=== PATIENT | female | born 1965 | race Caucasian/White ===

== ENCOUNTER 2021-03-02 13:26 | Observation (INO) | payer OTHER ==
--- OUTSIDE RECORDS SUMMARY | 2021-03-02 13:31 | XMS REPORT | Continuity of Care Document ---
:1965 Author Organization [facility] t Address [address] [place] [address] Care Team Providers Name Role Phone Tim OLIVEIRA Attending Clinician Only, Test Attending Clinician Unavailable Problems This patient has no known problems. Allergies, Adverse Reactions, Alerts This patient has no known allergies or adverse reactions. Medications This patient has no known medications. Procedures This patient has no known procedures. Encounters Start End Encounter Admission Attending Care Care Encounter Source Date/Time Date/Time Type Type Clinicians Facility Department ID 2021-01-06 2021-01-06 Orders GUILLERMINA Dumont [id number] 00:00:00 00:00:00 Only [facility]ly [facility] [id number] [facility] [id number] 2021-01-02 2021-01-02 Laboratory Only, [facility] [id number] 14:28:08 14:43:08 Only Test Yoder [id number] [facility] [id number] [place] [id number] Results Test Description Test Time Test Comments Results Result Comments Source Prothrombin Time and INR 2019-07-07 09:17:26 Test Item Value Reference Range Interpretation Comme nts Prothrombin Time (test code = Prothrombin Time) 11.7 seconds 9.8-13 .4 INR (test code = INR) 1.0 ratio 0.6-1.2 Partial Thromboplastin [id number] 09:17:26 Test Item Value Reference Range Interpretation Comments Partial Thromboplastin Time 40.50 seconds 24.39-37.25 H (test code = Partial Thromboplastin Time) Thyroid Stimulating [id number] 22:54:55 Test Item Value Reference Range Interpretation Comments TSH (test code = TSH) 3.160 mIU/mL 0.270-4.200 Comprehensive Metabolic [id number] 22:24:11 Test Item Value Reference Range Interpretation Comments Sodium Level (test code = Sodium 138.0 mmol/L 135.0-145.0 Level) Potassium Level (test code = 3.8 mmol/L 3.5-5.1 Potassium Level) Chloride Level (test code = 98 mmol/L 98-105 Chloride Level) CO2 (test code = CO2) 28 mmol/L 22-29 Anion Gap (test code = Anion 12 mmol/L 7-16 Gap) BUN (test code = BUN) 9.60 mg/dL 6.00-20.00 Creatinine Level (test code = 0.80 mg/dL 0.50-0.90 Creatinine Level) BUN/Creat Ratio (test code = 12 N BUN/Creat Ratio) Glucose Level (test code = 77 mg/dL 70-115 Glucose Level) Calcium Level (test code = 9.4 mg/dL 8.3-10.5 Calcium Level) Alk Phos (test code = Alk Phos) 93 U/L 35-104 Bilirubin Total (test code = 0.3 mg/dL 0.1-0.9 Bilirubin Total) Albumin Level (test code = 4.5 g/dL 3.5-5.2 Albumin Level) Protein Total (test code = 7.6 g/dL 6.4-8.3 Protein Total) ALT (test code = ALT) 31 U/L 1-33 AST (test code = AST) 37 U/L 1-32 H Globulin (test code = Globulin) 3.1 g/dL 2.9-3.1 A/G Ratio (test code = A/G 1.5 ratio N Ratio) Lipid [id number] 22:24:11 Test Item Value Reference Range Interpretation Comments Cholesterol Total 108 mg/dL 0-200 RISK OF HE ART (test code = DISEASEPublishe d by Cholesterol Total) [place] [employer] Perla lyte Optimal Borderl ine Increased RiskC HOL <200 200-239 >2 40TRIG <150 150-199 >2 00HDL Male >60 <40H DL Female >60 <5 0LDL <100 130-159 >1 60LDL Near optimal is 100-129 Triglycerides (test 107 mg/dL 9-200 code = Triglycerides) HDL (test code = HDL) 28 mg/dL 50-60 L LDL (test code = LDL) 59 mg/dL 0-130 The eq uation being used in this calcula tion is LDL = (Chol - H DL) - (Trig / 5) VLDL (test code = 21 mg/dL 5-40 The equati on being used VLDL) in this calcula tion is VLDL = Trig / 5 Chol/HDL (test code = 3.9 ratio 0.0-4.4 Chol/HDL) LDL/HDL Ratio (test 2 N The equa tion being used code = LDL/HDL Ratio) in thi s calculation is LDL/HDL Ratio=L DL Calc/HDL Chol Comprehensive Metabolic [id number] 22:24:11 Test Item Value Reference Range Interpretation Comments Sodium Level (test 138.0 mmol/L 135.0-145.0 code = Sodium Level) Potassium Level 3.8 mmol/L 3.5-5.1 (test code = Potassium Level) Chloride Level (test 98 mmol/L 98-105 code = Chloride Level) CO2 (test code = 28 mmol/L 22-29 CO2) Anion Gap (test code 12 mmol/L 7-16 = Anion Gap) BUN (test code = 9.60 mg/dL 6.00-20.00 BUN) Creatinine Level 0.80 mg/dL 0.50-0.90 (test code = Creatinine Level) BUN/Creat Ratio 12 N (test code = BUN/Creat Ratio) Glucose Level (test 77 mg/dL 70-115 code = Glucose Level) Calcium Level (test 9.4 mg/dL 8.3-10.5 code = Calcium Level) Alk Phos (test code 93 U/L 35-104 = Alk Phos) Bilirubin Total 0.3 mg/dL 0.1-0.9 (test code = Bilirubin Total) Albumin Level (test 4.5 g/dL 3.5-5.2 code = Albumin Level) Protein Total (test 7.6 g/dL 6.4-8.3 code = Protein Total) ALT (test code = 31 U/L 1-33 ALT) AST (test code = 37 U/L 1-32 H AST) Globulin (test code 3.1 g/dL 2.9-3.1 = Globulin) A/G Ratio (test code 1.5 ratio N = A/G Ratio) eGFR AA (test code = >60 N eGFR (e stimated eGFR AA) mL/min/1.73 m2 Glomerular Filtration Rate ) is an estimated va lue, calculated from the patient's serum creatinine usin g the MDRD equation. It is NOT the patient 's actual GFR. The eGFR provides a more clinically usef ul measure of kidn ey disease than se rum creatinine alone.This calculation ariela es sex and race in to account, if the information is provided. If th e race is not provided, and t he patient is -Yudith n, multiply by 1.2 12. If sex is not provided, and t he patient is fema le, multiply by 0.7 42. Results for pat ients <18 years of ag e have not been validated by th e MDRD study and should be interpreted wit h caution. eGFR R esult Interpretation: eGFR > or = 60 is in the Normal RangeeGF R < 60 may mean kid shaheed diseaseeGFR < 1 5 may mean kidney failure Rang es recommended by the National Kidney Foundation, http://nkdep.ni h.gov Comprehensive Metabolic [id number] 22:24:11 Test Item Value Reference Range Interpretation Comments Sodium Level (test 138.0 mmol/L 135.0-145.0 code = Sodium Level) Potassium Level 3.8 mmol/L 3.5-5.1 (test code = Potassium Level) Chloride Level (test 98 mmol/L 98-105 code = Chloride Level) CO2 (test code = 28 mmol/L 22-29 CO2) Anion Gap (test code 12 mmol/L 7-16 = Anion Gap) BUN (test code = 9.60 mg/dL 6.00-20.00 BUN) Creatinine Level 0.80 mg/dL 0.50-0.90 (test code = Creatinine Level) BUN/Creat Ratio 12 N (test code = BUN/Creat Ratio) Glucose Level (test 77 mg/dL 70-115 code = Glucose Level) Calcium Level (test 9.4 mg/dL 8.3-10.5 code = Calcium Level) Alk Phos (test code 93 U/L 35-104 = Alk Phos) Bilirubin Total 0.3 mg/dL 0.1-0.9 (test code = Bilirubin Total) Albumin Level (test 4.5 g/dL 3.5-5.2 code = Albumin Level) Protein Total (test 7.6 g/dL 6.4-8.3 code = Protein Total) ALT (test code = 31 U/L 1-33 ALT) AST (test code = 37 U/L 1-32 H AST) Globulin (test code 3.1 g/dL 2.9-3.1 = Globulin) A/G Ratio (test code 1.5 ratio N = A/G Ratio) eGFR AA (test code = >60 N eGFR (e stimated eGFR AA) mL/min/1.73 m2 Glomerular Filtration Rate ) is an estimated va lue, calculated from the patient's serum creatinine usin g the MDRD equation. It is NOT the patient 's actual GFR. The eGFR provides a more clinically usef ul measure of kidn ey disease than se rum creatinine alone.This calculation ariela es sex and race in to account, if the information is provided. If th e race is not provided, and t he patient is -Yudith n, multiply by 1.2 12. If sex is not provided, and t he patient is fema le, multiply by 0.7 42. Results for pat ients <18 years of ag e have not been validated by e MDRD study and should be interpreted wit h caution. eGFR R esult Interpretation: eGFR > or = 60 is in the Normal RangeeGF R < 60 may mean kid shaheed diseaseeGFR < 1 5 may mean kidney failure Rang es recommended by the National Kidney Foundation, http://nkdep.ni h.gov eGFR Non-AA (test >60.00 N eGFR (ayanna mated code = eGFR Non-AA) mL/min/1.73 m2 Glomer ular Filtration Rate ) is an estimated va lue, calculated from the patient's serum creatinine usin g the MDRD equation. It is NOT the patient 's actual GFR. The eGFR provides a more clinically usef ul measure of kidn ey disease than se rum creatinine alone.This calculation ariela es sex and race in to account, if the information is provided. If th e race is not provided, and t he patient is -Yudith n, multiply by 1.2 12. If sex is not provided, and t he patient is femkaylene le, multiply by 0.7 42. Results for pat ients <18 years of ag e have not been validated by e MDRD study and should be interpreted wit h caution. eGFR R esult Interpretation: eGFR > or = 60 is in the Normal RangeeGF R < 60 may mean kid shaheed diseaseeGFR < 1 5 may mean kidney failure Rang es recommended by the National Kidney Foundation, http://nkdep.ni h.gov Complete Blood Count with [id number] 22:15:02 Test Item Value Reference Range Interpretation Comments WBC (test code = WBC) 8.3 x10 4.4-10.5 RBC (test code = RBC) 4.98 x10 3.75-5.20 Hgb (test code = Hgb) 16.1 g/dL 12.2-14.8 H MCV (test code = MCV) 96.80 fL 80.00-100.00 Hct (test code = Hct) 48.2 % 36.5-44.4 H MCHC (test code = 33.40 g/dL 32.00-37.50 MCHC) MCH (test code = MCH) 32.3 pg 27.0-32.5 RDW CV (test code = 13.6 % 11.5-14.5 RDW CV) Platelets (test code = 154.0 x10 140.0-440.0 Platelets) MPV (test code = MPV) 12.3 fL N Slide Review (test Auto Auto Result cr eated by code = Slide Review) GL_SJM_ SLIDE_REV_AUTO nRBC (test code = 0 N nRBC) NRBC Abs (test code = 0.00 x10 N NRBC Abs) IPF (test code = IPF) 0 % N Automated [id number] 22:15:02 Test Item Value Reference Range Interpretation Comments Neutro Auto (test code = Neutro 66.2 % 36.0-70.0 Auto) Lymph Auto (test code = Lymph Auto) 24.0 % 12.0-44.0 [place]oda Auto (test code = [place]oda Auto) 7.2 % 0.0-11.0 Eos, Auto (test code = Eos, Auto) 1.8 % 0.0-7.0 Basophil Auto (test code = Basophil 0.4 % 0.0-2.0 Auto) Neutro Absolute (test code = Neutro 5.5 x10 1.6-7.4 Absolute) Lymph Absolute (test code = Lymph 1.99 x10 .50-4.60 Absolute) [place] Absolute (test code = [place] .60 x10 .00-1.20 Absolute) Eos Absolute (test code = Eos 0.15 x10 0.00-0.74 Absolute) Baso Absolute (test code = Baso 0.03 x10 0.00-0.21 Absolute) IG [id number] 22:15:02 Test Item Value Reference Range Interpretation Comments IG (test code = IG) 0.4 % 0.0-5.0 IG Abs (test code = IG Abs) 0 x10 N
[2021-03-02 16:05] LABS: Absolute Lymphocytes (CBC) 1.8 K/uL (0.7-4.9); Hematocrit 50.2 % (36.0-45.0); Lymphocytes % 31.9 % (15.3-44.8); RBC Red Blood Cell Count 5.28 M/uL (3.86-4.86)
[2021-03-02 16:12] LABS: Protime INR 1.08
[2021-03-02] MEDS ORDERED: MORPHINE 2 MG/ML SYR ONE ×2 (16:18→17:07)
[2021-03-02] MEDS ORDERED: METHYLPREDNISOLONE 125 MG INJ ONE (16:18)
[2021-03-02] MEDS ORDERED: ONDANSETRON 4 MG/2 ML VIAL ONE ×2 (16:18→17:31)
[2021-03-02] MEDS ORDERED: NA CHLORIDE 0.9% 250 ML ONE (16:19)
[2021-03-02] MEDS ORDERED: IPRATROPIUM BROM 0.5MG/2.5ML ONE (16:19)
[2021-03-02] MEDS ORDERED: FAMOTIDINE 20 MG/2 ML VIAL IV ONE (16:19)
[2021-03-02] MEDS ORDERED: AZITHROMYCIN 500 MG INJ IVPB ONE (16:19)
[2021-03-02] MEDS ORDERED: NA CHLORIDE 0.9% 500 ML ONE (16:19)
[2021-03-02] MEDS ORDERED: LEVALBUTEROL 1.25 MG/3 ML NEB ONE ×2 (16:19→19:50)
[2021-03-02] MEDS ORDERED: NA CHLORIDE 0.9% 1,000 ML ONE (16:19)
[2021-03-02] MEDS ORDERED: CEFTRIAXONE/SWI 1gm 1 GM/10 ML SYR ONE (16:20)
[2021-03-02 16:37] LABS: ALT/SGPT 30 U/L (12-78); AST/SGOT 25 U/L (15-37); Albumin 3.5 g/dL (3.4-5.0); Alkaline Phosphatase 113 U/L (45-117); BUN Blood Urea Nitrogen 4 mg/dL (7-18); Bicarbonate 30 mmol/L (21-32); Bilirubin Direct 0.1 mg/dL (0-0.2); Bilirubin Total 0.5 mg/dL (0.2-1.0); Glucose Level 84 mg/dL (74-106); Lipase 56 U/L (73-393); Magnesium 2.4 mg/dL (1.8-2.4); NT PRO-BNP 107 pg/mL (<125); Potassium 3.7 mmol/L (3.5-5.1); Protein, Total 8.5 g/dL (6.4-8.2); Sodium Level 142 mmol/L (136-145); Troponin (Emerg Dept Use Only) < 0.02 ng/mL (0.0-0.045)
--- NOTE | 2021-03-02 16:45 | RAD REPORT ---
EXAM DESCRIPTION: RAD - Chest Single View - 03/02/2021 4:17 pm CLINICAL HISTORY: COPD COMPARISON: None TECHNIQUE: AP portable chest image was obtained 03/02/2021 4:17 pm . FINDINGS: Lung volumes are normal. Diffusely prominent interstitial pattern seen throughout both bruce g mercer. No focal mass or consolidation. No measurable pleural effusion and no pneumothorax. No acut e bony abnormality seen. No acute aortic findings suspected. IMPRESSION: Extensive interstitial opacification is probably chronic COPD. No comparison is available. Chronic interstitial lung disease can mask early edema and infiltrate.
[2021-03-02] MEDS ORDERED: NICOTINE 21 MG/PAT TD ONE (17:07)
[2021-03-02 17:10] LABS: SARS-COV-2 RT PCR NEGATIVE (NEGATIVE)
--- NOTE | 2021-03-02 17:18 | ER ---
Nurse's Notes [facility] Name: Zaina Norman Age: 55 yrs Sex: Female : 1965 Arrival Date: 03/02/2021 Time: 13:28 Bed 23 Private MD: Diagnosis: Chronic obstructive pulmonary disease with (acute) exacerbation;Chest pain, unspecified;Chest pain on breathing;Tobacco abuse counseling;Tobacco use;Respiratory failure, unspecified with hypercapnia;Respiratory failure, unspecified with hypoxia;Urinary tract infection, site not specified Presentation: 03/02 13:42 Chief complaint: Patient states: SOB, lungs hurt, cough worse than usual for 9 days. ll1 [place] ran out of O2, had low O2 sat. when she was out of town. Been back for about 10 days, but still feels bad. Wears oxygen as needed at home. Epigastric pain for several years. Needs a scope, can't be cleared for endo. Coronavirus screen: Client denies travel out of the [place] in the last 14 days. cough unrelated to allergies, difficulty breathing, shortness of breath, Client presents with at least one sign or symptom that may indicate coronavirus-19. Standard/surgical mask placed on the client. Ebola Screen: Patient denies travel to an Ebola-affected area in the 21 days before illness onset. Initial Sepsis Screen: Does the patient meet any 2 criteria? HR > 90 bpm. No. Patient's initial sepsis screen is negative. Does the patient have a suspected source of infection? Yes: Productive cough/pneumonia. Risk Assessment: Do you want to hurt yourself or someone else? Patient reports no desire to harm self or others. Onset of symptoms was February 21, 2021. 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 Flu vaccine is not up to date. - Social history:: Smoking status: Patient reports the use of cigarette tobacco products, smokes one-half pack cigarettes per day. Screenin:30 Abuse screen: Denies threats or abuse. Denies injuries from another. Nutritional zb screening: No deficits noted. Tuberculosis screening: No symptoms or risk factors identified. Fall Risk None identified. Assessment: 15:30 General: Appears uncomfortable, Behavior is anxious, Reports feeling ill for > 3 days, zb fatigue for >3 days. Pain: Complains of pain in back, chest and abdomen Pain currently is 10 out of 10 on a pain scale. Quality of pain is described as crushing, pressure, Pain began 9 days ago Noted to be crying, grimacing, moaning. Neuro: Level of Consciousness is awake, alert, obeys commands, Oriented to person, place, time, situation. Cardiovascular: Reports chest pain, shortness of breath, Heart tones S1 S2 present Capillary refill < 3 seconds fingers Patient's skin is warm and dry. Pulses are all present. Rhythm is regular. Respiratory: Reports shortness of breath at rest cough that is hacking, persistent pain with cough pain with movement pain with respiration Airway is patent Respiratory effort is shallow, weak, using tripod position, Respiratory pattern is tachypnea Breath sounds are diminished in left posterior lower lobe and right posterior lower lobe Breath sounds with rhonchi in left posterior lower lobe and right posterior lower lobe the patient has moderate shortness of breath. GI: Abdomen is round Bowel sounds present X 4 quads. Abdomen is tender to palpation in abdomen diffusely Patient currently denies constipation, diarrhea, nausea. Derm: Skin is intact, is healthy with good turgor, Skin is dry, Skin is pale. Musculoskeletal: Circulation, motion, and sensation intact. Range of motion: intact in all extremities. 16:30 Reassessment: Patient appears in no apparent distress at this time. Patient and/or zb family updated on plan of care and expected duration. Pain level reassessed. patient c/o of needing cigarette notified ecp. medication ordered. 16:50 Reassessment: Patient appears in no apparent distress at this time. Patient and/or zb family updated on plan of care and expected duration. Pain level reassessed. Patient is alert, oriented x 3, equal unlabored respirations, skin warm/dry/pink. ECP at bedside discussing care with patient. 17:50 Reassessment: Patient appears in no apparent distress at this time. Patient and/or zb family updated on plan of care and expected duration. Pain level reassessed. pt states she is still in pain. notified ecp. no new orders at this time. 18:13 Reassessment: patient states she is still in pain at this time. notified ecp. zb 19:39 Reassessment: Patient appears in no apparent distress at this time. Patient and/or zb family updated on plan of care and expected duration. Pain level reassessed. Patient is alert, oriented x 3, equal unlabored respirations, skin warm/dry/pink. Patient states feeling better. Patient states symptoms have improved. 20:06 Reassessment: patient is currently on BIPAP. 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 zb Vital Signs: 13:42 BP 121 / 95; Pulse 98; Resp 20; Temp 97.4; Pulse Ox 95% on 3 lpm NC; Height 5 ft. 1 in. ll1 (154.94 cm); Pain 9/10; 15:30 BP 119 / 84; Pulse 101; Resp 22; Pulse Ox 92% on 2 lpm NC; zb 17:00 BP 131 / 98; Pulse 92; Resp 20; Pulse Ox 99% on 2 lpm NC; zb 18:00 Weight 62.4 kg; Height 4 ft. 11 in. (149.86 cm); zb 18:12 BP 132 / 108; Pulse 105; Resp 18; Pulse Ox 95% on 2 lpm NC; zb 19:27 BP 109 / 79; Pulse 90; Resp 18; Pulse Ox 95% on 2 lpm NC; zb 20:46 BP 115 / 79; Pulse 81; Resp 18; Pulse Ox 94% on BiPAP; zb 18:00 Body Mass Index 27.79 (62.40 kg, 149.86 cm) zb ED Course: 13:28 Patient arrived in ED. am4 13:46 Triage completed. ll1 13:48 Arm band placed on. ll1 15:21 Patient placed in an exam room, on a stretcher. ll1 15:25 Radha Moreira RN is Primary Nurse. zb 15:30 Sean Schwarz MD is Attending Physician. mak 15:30 Patient has correct armband on for positive identification. Bed in low position. Call zb light in reach. Side rails up X 1. 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 Pulse ox on. NIBP on. Door closed. Noise minimized. 15:40 Inserted saline lock: 20 gauge in right antecubital area, using aseptic technique. zb Blood collected. Oxygen administration via nasal cannula \T\ 2L/min Response to oxygen therapy: symptoms improved. 15:41 EKG done, by ED staff, reviewed by Sean Schwarz MD. mb4 16:00 Initial Neb Treatment Given as ordered Patient was instructed and evaluated on zb procedure Patient tolerated procedure well without adverse effect. 16:17 XRAY Chest (1 view) In Process Unspecified. EDMS 17:15 Isreal Paredes DO is Hospitalizing Provider. [facility] 17:28 CT Aorta for Dissection In Process Unspecified. EDMS 20:52 No provider procedures requiring assistance completed. Patient admitted, IV remains in zb place. Administered Medications: 16:07 Drug: SOLU-Medrol (methylPrednisoLONE) 125 mg Route: IVP; Site: right antecubital; zb 16:57 Follow up: Response: No adverse reaction zb 16:07 Drug: morphine 2 mg {Note: RASS +1.} Route: IVP; Site: right antecubital; zb 16:08 Drug: NS 0.9% 500 ml Route: IV; Rate: bolus; Site: right antecubital; zb 16:58 Follow up: Response: No adverse reaction; IV Status: Completed infusion; IV Intake: zb 500ml 16:08 Drug: Pepcid (famotidine) 20 mg Route: IVP; Site: right antecubital; zb 16:58 Follow up: Response: No adverse reaction zb 16:08 Drug: Zofran (Ondansetron) 4 mg Route: IVP; Site: right antecubital; zb 16:57 Follow up: Response: No adverse reaction zb 16:20 Drug: NS 0.9% 1000 ml Route: IV; Rate: 125 ml/hr; Site: right antecubital; zb 16:28 Drug: Rocephin (cefTRIAXone) 1 grams Route: IV; Rate: per protocol; Site: right zb antecubital; 16:30 Follow up: Response: No adverse reaction; IV Status: Completed infusion; IV Intake: 10mlzb 16:28 Drug: Zithromax (azithromycin) 500 mg Route: IVPB; Infused Over: 1 hrs; Site: right zb antecubital; 16:28 Drug: Xopenex (levalbuterol) 3.75 mg Route: Inhalation; zb 16:28 Drug: AtroVENT (ipratropium) Aerosol 0.5 mg Route: Inhalation; zb 16:56 Drug: morphine 2 mg {Note: RASS +1.} Route: IVP; Site: right antecubital; zb 17:30 Follow up: Response: No adverse reaction; Pain is unchanged, physician notified zb 16:59 Drug: Nicoderm CQ 21 mg/24 hr 21 mg Route: Transdermal; Site: affected area; zb 18:11 Follow up: Response: No adverse reaction zb 17:00 Drug: morphine 4 mg Route: IVP; Site: right antecubital; zb 18:11 Follow up: Response: No adverse reaction; No change in condition; Pain is unchanged, zb physician notified 17:00 Drug: Zofran (Ondansetron) 4 mg Route: IVP; Site: right antecubital; zb 18:11 Follow up: Response: No adverse reaction zb 18:10 Drug: Lovenox (enoxaparin) 1 mg/kg Route: Sub-Q; Site: right lower abdomen; zb 18:26 Follow up: Response: No adverse reaction zb 18:10 Drug: Aspirin Chewable Tablet 324 mg Route: PO; zb 18:26 Follow up: Response: No adverse reaction zb 18:50 Drug: HYDROcodone-acetaminophen 5 mg-325 mg 1 tabs {Note: RASS 0.} Route: PO; zb 19:27 Follow up: Response: No adverse reaction; Pain is decreased; RASS: Alert and Calm (0) zb 19:38 Drug: Xopenex (levalbuterol) 2.5 mg Route: Inhalation; zb 20:00 Follow up: Response: No adverse reaction; Marked relief of symptoms zb 19:39 Drug: Decadron - Dexamethasone 10 mg Route: IVP; Site: right antecubital; zb 20:00 Follow up: Response: No adverse reaction zb Intake: 16:30 IV: 10ml; Total: 10ml. zb 16:58 IV: 500ml; Total: 510ml. zb Outcome: 17:17 Decision to Hospitalize by Provider. mak 20:52 Admitted to Med/surg accompanied by tech, via stretcher, room 225, with oxygen, with zb chart, Report called to MARCELINO García 20:52 Condition: stable 21:53 Patient left the ED. zb Signatures: Dispatcher [employer] EDMS Sean Schwarz MD MD cha Baxter, Mackenzie mb4 Alecia Crawford RN RN ll1 Radha Moreira RN RN bladimirb Kym Wilson 4 Corrections: (The following items were deleted from the chart) 14:04 13:42 BP 121 / 95; Pulse 98bpm; Resp 20bpm; Pulse Ox 94% 3 lpm Nasal Cannula; Temp ll1 97.4F; Height 5 ft. 1 in.; Pain 9/10; ll1 17:38 17:38 Zofran (Ondansetron) 4 mg IVP in right antecubital zb zb 18:14 17:50 Reassessment: Patient appears in no apparent distress at this time. Patient zb and/or family updated on plan of care and expected duration. Pain level reassessed. pt states she is still in pain. notified ecp. zb
--- NOTE | 2021-03-02 17:19 | EDPHYS ---
Physician Documentation [facility] Name: Zaina Norman Age: 55 yrs Sex: Female : 1965 Arrival Date: 03/02/2021 Time: 13:28 Bed 23 Private MD: GABBY Physician Sean Schwarz HPI: 03/02 17:02 This 55 yrs old Female presents to ER via Wheelchair with complaints of mak Abdominal Pain, Shortness Of Breath, Decreased Appetite. 17:02 The patient has shortness of breath at rest, with light activity. Onset: The mak symptoms/episode began/occurred 3 day(s) ago. Duration: The symptoms are continuous, and are steadily getting worse. The patient's shortness of breath is aggravated by exertion, light activity. Associated signs and symptoms: The patient has no apparent associated signs or symptoms. Severity of symptoms: At their worst the symptoms were mild moderate in the emergency department the symptoms are unchanged Pain is currently a 5 / 10. The patient has experienced similar episodes in the past, a few times. 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 Flu vaccine is not up to date. - Social history:: Smoking status: Patient reports the use of cigarette tobacco products, smokes one-half pack cigarettes per day. ROS: 17:04 Constitutional: Negative for fever, chills, and weight loss, Eyes: Negative for injury, mak pain, redness, and discharge, ENT: Negative for injury, pain, and discharge, Neck: Negative for injury, pain, and swelling, Cardiovascular: Negative for chest pain, palpitations, and edema, Abdomen/GI: Negative for abdominal pain, nausea, vomiting, diarrhea, and constipation, Back: Negative for injury and pain, : Negative for injury, bleeding, discharge, and swelling, MS/Extremity: Negative for injury and deformity, Skin: Negative for injury, rash, and discoloration, Neuro: Negative for headache, weakness, numbness, tingling, and seizure, Psych: Negative for depression, anxiety, suicide ideation, homicidal ideation, and hallucinations, Allergy/Immunology: Negative for hives, rash, and allergies, Endocrine: Negative for neck swelling, polydipsia, polyuria, polyphagia, and marked weight changes, Hematologic/Lymphatic: Negative for swollen nodes, abnormal bleeding, and unusual bruising. 17:04 Respiratory: Positive for cough, shortness of breath, wheezing, expiratory. Exam: 17:04 Constitutional: This is a well developed, well nourished patient who is awake, alert, mak and in no acute distress. Head/Face: Normocephalic, atraumatic. Eyes: Pupils equal round and reactive to light, extra-ocular motions intact. Lids and lashes normal. Conjunctiva and sclera are non-icteric and not injected. Cornea within normal limits. Periorbital areas with no swelling, redness, or edema. ENT: Nares patent. No nasal discharge, no septal abnormalities noted. Tympanic membranes are normal and external auditory canals are clear. Oropharynx with no redness, swelling, or masses, exudates, or evidence of obstruction, uvula midline. Mucous membranes moist. Neck: Trachea midline, no thyromegaly or masses palpated, and no cervical lymphadenopathy. Supple, full range of motion without nuchal rigidity, or vertebral point tenderness. No Meningismus. Chest/axilla: Normal chest wall appearance and motion. Nontender with no deformity. No lesions are appreciated. Cardiovascular: Regular rate and rhythm with a normal S1 and S2. No gallops, murmurs, or rubs. Normal PMI, no JVD. No pulse deficits. Abdomen/GI: Soft, non-tender, with normal bowel sounds. No distension or tympany. No guarding or rebound. No evidence of tenderness throughout. Back: No spinal tenderness. No costovertebral tenderness. Full range of motion. Skin: Warm, dry with normal turgor. Normal color with no rashes, no lesions, and no evidence of cellulitis. MS/ Extremity: Pulses equal, no cyanosis. Neurovascular intact. Full, normal range of motion. Neuro: Awake and alert, GCS 15, oriented to person, place, time, and situation. Cranial nerves II-XII grossly intact. Motor strength 5/5 in all extremities. Sensory grossly intact. Cerebellar exam normal. Normal gait. Psych: Awake, alert, with orientation to person, place and time. Behavior, mood, and affect are within normal limits. 17:04 Respiratory: the patient does not display signs of respiratory distress, Respirations: normal, no acute changes, Breath sounds: rales, are not appreciated, decreased breath sounds, that are mild, are heard in the right upper lobe, left upper lobe, right middle lobe, left lower lobe, right lower lobe, left posterior upper lobe, right posterior upper lobe, left posterior lower lobe, right posterior middle lobe and right posterior lower lobe, rhonchi, stridor, is not appreciated, + upper airway congestion. wheezing: expiratory 17:06 ECG was reviewed by the Attending Physician. mak 17:13 Musculoskeletal/extremity: DVT Exam: No signs of deep vein thrombosis. no pain, no mak swelling, no tenderness, negative Homans' sign noted on exam, no appreciated bluish discoloration, no erythema, no increased warmth. Vital Signs: 13:42 BP 121 / 95; Pulse 98; Resp 20; Temp 97.4; Pulse Ox 95% on 3 lpm NC; Height 5 ft. 1 in. ll1 (154.94 cm); Pain 9/10; 15:30 BP 119 / 84; Pulse 101; Resp 22; Pulse Ox 92% on 2 lpm NC; zb 17:00 BP 131 / 98; Pulse 92; Resp 20; Pulse Ox 99% on 2 lpm NC; zb 18:00 Weight 62.4 kg; Height 4 ft. 11 in. (149.86 cm); zb 18:12 BP 132 / 108; Pulse 105; Resp 18; Pulse Ox 95% on 2 lpm NC; zb 19:27 BP 109 / 79; Pulse 90; Resp 18; Pulse Ox 95% on 2 lpm NC; zb 20:46 BP 115 / 79; Pulse 81; Resp 18; Pulse Ox 94% on BiPAP; zb 18:00 Body Mass Index 27.79 (62.40 kg, 149.86 cm) zb MDM: 15:30 Patient medically screened. mak 17:11 Differential diagnosis: Bronchitis CHF exacerbation, Chronic Obstructive Pulmonary mak Disease Myocardial Infarction pneumonia, Pneumothorax Psychogenic pulmonary edema, Pulmonary Embolism reactive airway disease, Sepsis Unstable Angina. Antibiotic administration: Rocephin and Zithromax given. The patient's Wells Deep Vein Thrombosis Score was calculated as follows: Total Score: 0-2 Pts- Low Risk. The patient's pulmonary embolism risk score was calculated as follows: Total Score: 0-2 points. This patient was found to be at low risk for a pulmonary embolism by using the Well's assessment criteria. Immunization status: Influenza vaccine:. Data reviewed: vital signs, nurses notes, lab test result(s), EKG, radiologic studies, CT scan, plain films. Data interpreted: color television console monitor: rate is 92 beats/min, rhythm is regular, Pulse oximetry: on room air. Test interpretation: by ED physician or midlevel provider: ECG, plain radiologic studies. Counseling: I had a detailed discussion with the patient and/or guardian regarding: the historical points, exam findings, and any diagnostic results supporting the discharge/admit diagnosis, lab results, the need for further work-up and treatment in the hospital. 03/02 15:53 Order name: Basic Metabolic Panel [facility] 03/02 15:53 Order name: CBC with Diff [facility] 03/02 15:53 Order name: LFT's [facility] 03/02 15:53 Order name: Magnesium [facility] 03/02 15:53 Order name: NT PRO-BNP [facility] 03/02 15:53 Order name: PT-INR; Complete Time: 16:41 [facility] 03/02 15:53 Order name: Troponin (emerg Dept Use Only); Complete Time: 17:08 [facility] 03/02 15:53 Order name: Lipase; Complete Time: 17:08 [facility] 03/02 15:53 Order name: Blood Culture Adult (2) [facility] 03/02 15:53 Order name: Flu [facility] 03/02 15:54 Order name: Basic Metabolic Panel; Complete Time: 17:08 [facility] 03/02 15:54 Order name: CBC with Automated Diff; Complete Time: 19:15 [facility] 03/02 15:54 Order name: Liver (Hepatic) Function; Complete Time: 17:08 [facility] 03/02 15:53 Order name: XRAY Chest (1 view); Complete Time: 17:08 [facility] 03/02 15:53 Order name: CT Aorta for Dissection; Complete Time: 18:13 [facility] 03/02 15:54 Order name: Magnesium; Complete Time: 17:08 [facility] 03/02 15:54 Order name: NT PRO-BNP; Complete Time: 17:08 [facility] 03/02 17:10 Order name: COVID-19/FLU A+B; Complete Time: 17:11 [facility] 03/02 18:44 Order name: CBC Smear Scan; Complete Time: 19:15 [facility] 03/02 18:50 Order name: ABG hb 03/02 19:17 Order name: BIPAP mak 03/02 19:22 Order name: Urine Dipstick-Ancillary; Complete Time: 19:23 [facility] 03/02 19:41 Order name: ABG Arterial Blood Gas [facility] 03/02 15:53 Order name: EKG; Complete Time: 15:54 [facility] 03/02 15:53 Order name: Cardiac monitoring; Complete Time: 16:29 [facility] 03/02 15:53 Order name: EKG - Nurse/Tech; Complete Time: 16:08 [facility] 03/02 15:53 Order name: IV Saline Lock; Complete Time: 16:09 [facility] 03/02 15:53 Order name: Labs collected and sent; Complete Time: 16:09 [facility] 03/02 15:53 Order name: O2 Per Protocol; Complete Time: 16:09 [facility] 03/02 15:53 Order name: O2 Sat Monitoring; Complete Time: 16:09 [facility] 03/02 15:53 Order name: Urine Dipstick-Ancillary (obtain specimen); Complete Time: 19:17 mak EC:06 Rate is 89 beats/min. Rhythm is regular. QRS [place]ow[place] is Normal. [place] interval is normal. QRS mak interval is normal. QT interval is normal. No Q waves. T waves are Normal. No ST changes noted. Clinical impression: Normal ECG and No evidence of ischemia. Interpreted by me. Reviewed by me. Administered Medications: 16:07 Drug: SOLU-Medrol (methylPrednisoLONE) 125 mg Route: IVP; Site: right antecubital; zb 16:57 Follow up: Response: No adverse reaction zb 16:07 Drug: morphine 2 mg {Note: RASS +1.} Route: IVP; Site: right antecubital; zb 16:08 Drug: NS 0.9% 500 ml Route: IV; Rate: bolus; Site: right antecubital; zb 16:58 Follow up: Response: No adverse reaction; IV Status: Completed infusion; IV Intake: zb 500ml 16:08 Drug: Pepcid (famotidine) 20 mg Route: IVP; Site: right antecubital; zb 16:58 Follow up: Response: No adverse reaction zb 16:08 Drug: Zofran (Ondansetron) 4 mg Route: IVP; Site: right antecubital; zb 16:57 Follow up: Response: No adverse reaction zb 16:20 Drug: NS 0.9% 1000 ml Route: IV; Rate: 125 ml/hr; Site: right antecubital; zb 16:28 Drug: Rocephin (cefTRIAXone) 1 grams Route: IV; Rate: per protocol; Site: right zb antecubital; 16:30 Follow up: Response: No adverse reaction; IV Status: Completed infusion; IV Intake: 10mlzb 16:28 Drug: Zithromax (azithromycin) 500 mg Route: IVPB; Infused Over: 1 hrs; Site: right zb antecubital; 16:28 Drug: Xopenex (levalbuterol) 3.75 mg Route: Inhalation; zb 16:28 Drug: AtroVENT (ipratropium) Aerosol 0.5 mg Route: Inhalation; zb 16:56 Drug: morphine 2 mg {Note: RASS +1.} Route: IVP; Site: right antecubital; zb 17:30 Follow up: Response: No adverse reaction; Pain is unchanged, physician notified zb 16:59 Drug: Nicoderm CQ 21 mg/24 hr 21 mg Route: Transdermal; Site: affected area; zb 18:11 Follow up: Response: No adverse reaction zb 17:00 Drug: morphine 4 mg Route: IVP; Site: right antecubital; zb 18:11 Follow up: Response: No adverse reaction; No change in condition; Pain is unchanged, zb physician notified 17:00 Drug: Zofran (Ondansetron) 4 mg Route: IVP; Site: right antecubital; zb 18:11 Follow up: Response: No adverse reaction zb 18:10 Drug: Lovenox (enoxaparin) 1 mg/kg Route: Sub-Q; Site: right lower abdomen; zb 18:26 Follow up: Response: No adverse reaction zb 18:10 Drug: Aspirin Chewable Tablet 324 mg Route: PO; zb 18:26 Follow up: Response: No adverse reaction zb 18:50 Drug: HYDROcodone-acetaminophen 5 mg-325 mg 1 tabs {Note: RASS 0.} Route: PO; zb 19:27 Follow up: Response: No adverse reaction; Pain is decreased; RASS: Alert and Calm (0) zb 19:38 Drug: Xopenex (levalbuterol) 2.5 mg Route: Inhalation; zb 20:00 Follow up: Response: No adverse reaction; Marked relief of symptoms zb 19:39 Drug: Decadron - Dexamethasone 10 mg Route: IVP; Site: right antecubital; zb 20:00 Follow up: Response: No adverse reaction zb Disposition: 03/02/21 17:17 Hospitalization ordered by Isreal Paredes for Inpatient Admission. Preliminary diagnosis are Chronic obstructive pulmonary disease with (acute) exacerbation, Chest pain, unspecified, Chest pain on breathing, Tobacco abuse counseling, Tobacco use, Respiratory failure, unspecified with hypercapnia, Respiratory failure, unspecified with hypoxia, Urinary tract infection, site not specified. - Bed requested for Telemetry/MedSurg (Inpatient). - Status is Inpatient Admission. zb - Condition is Fair. - Problem is new. - Symptoms have improved. Signatures: Dispatcher [employer] [facility] Sean Schwarz MD MD cha Attema, Lee, SPANISHER-C SPANISHER-Cla1 Eliz Leonard RN RN cg Alecia Crawford RN RN ll1 Radha Moreira RN RN zb Corrections: (The following items were deleted from the chart) 16:21 15:54 CORONAVIRUS+LAB.CHRISTY ordered. [facility] 19:18 17:17 Hospitalization Ordered by Isreal Paredes DO for Observation. Preliminary mak diagnosis is Chronic obstructive pulmonary disease with (acute) exacerbation; Chest pain, unspecified; Chest pain on breathing; Tobacco abuse counseling; Tobacco use. Bed requested for Telemetry/MedSurg (observation). Status is Observation. Condition is Fair. Problem is new. Symptoms have improved. [facility] 19:24 19:18 03/02/2021 17:17 Hospitalization Ordered by Isreal Paredes DO for Inpatient mak Admission. Preliminary diagnosis is Chronic obstructive pulmonary disease with (acute) exacerbation; Chest pain, unspecified; Chest pain on breathing; Tobacco abuse counseling; Tobacco use; Respiratory failure, unspecified with hypercapnia; Respiratory failure, unspecified with hypoxia. Bed requested for Telemetry/MedSurg (Inpatient). Status is Inpatient Admission. Condition is Fair. Problem is new. Symptoms have improved. mak 20:08 19:24 03/02/2021 17:17 Hospitalization Ordered by Isreal Paredes DO for Inpatient cg Admission. Preliminary diagnosis is Chronic obstructive pulmonary disease with (acute) exacerbation; Chest pain, unspecified; Chest pain on breathing; Tobacco abuse counseling; Tobacco use; Respiratory failure, unspecified with hypercapnia; Respiratory failure, unspecified with hypoxia; Urinary tract infection, site not specified. Bed requested for Telemetry/MedSurg (Inpatient). Status is Inpatient Admission. Condition is Fair. Problem is new. Symptoms have improved. mak 21:53 20:08 03/02/2021 17:17 Hospitalization Ordered by Isreal Paredes DO for Inpatient zb Admission. Preliminary diagnosis is Chronic obstructive pulmonary disease with (acute) exacerbation; Chest pain, unspecified; Chest pain on breathing; Tobacco abuse counseling; Tobacco use; Respiratory failure, unspecified with hypercapnia; Respiratory failure, unspecified with hypoxia; Urinary tract infection, site not specified. Bed requested for Telemetry/MedSurg (Inpatient). Status is Inpatient Admission. Condition is Fair. Problem is new. Symptoms have improved. cg
[2021-03-02] MEDS ORDERED: MORPHINE 4 MG/ML SYR ONE (17:30)
--- NOTE | 2021-03-02 18:01 | RAD REPORT ---
EXAM DESCRIPTION: CT - Angio Aorta For Dissection - 03/02/2021 5:28 pm CLINICAL HISTORY: Dissection;COPD COMPARISON: None. TECHNIQUE: Dynamically enhanced 3 mm thick images of the chest, abdomen, and pelvis were obtained du ring administration of approximately 150mL Isovue 370 IV contrast. Sagittal and coronal reconstructio n images were generated using MIP and reviewed. Exam utilizes a protocol to evaluate entire course of the aorta. All CT scans are performed using dose optimization technique as appropriate and may include automated exposure control or mA/KV adjustment according to patient size. FINDINGS: Aorta is normal in diameter with no dissection or other acute aortic findings. Reconstruct ion images show no significant findings. Aortic wall calcifications are present with minimally irregu lar plaquing in the infrarenal segment. Pulmonary arteries are normal. No cardiomegaly, pericardial thickening or pericardial effusion. Subpleural fibrotic changes are present. No acute mass or infiltrate identifiable. A few small calcif ied granulomas are present. No pleural thickening, pleural effusion or pneumothorax. Ununited posteri or right seventh rib fracture is present. Partial union noted in the posterior left eighth rib. No abnormal mediastinal or hilar mass or lymphadenopathy seen. No chest wall mass or abnormal axillar y lymphadenopathy. Celiac, SMA and renal arteries show no suspicious findings. Paired renal artery supply the right kidn ey was single left renal artery Solid abdominal viscera and bowel show no significant findings. A few mildly prominent fluid-filled small bowel loops are present. Enteritis of the distal small bowel is possible if there are supporting clinical findings. Cholecystectomy clips are present. No biliary michael e dilatation. No mass or abnormal lymphadenopathy. No free air, free fluid or inflammatory stranding. No urinary bladder abnormality. Iliac artery atherosclerotic calcifications are present. There is mild narrowing of the right common iliac artery. Approximately 40% stenosis present at the origin of the left external iliac artery. IMPRESSION: Unremarkable CT scan of the aorta for aneurysm, dissection or emergent finding. Mild aor tic wall calcifications are present with mild infrarenal aortic plaquing change. Milder right common iliac artery narrowing due to atherosclerotic changes. The patient has approximat vaughn 40% stenosis of the left external carotid artery at its origin. A few mildly prominent small bowel loops are present. Enteritis is possible if there are matching cli nical findings. Additional nonacute findings detailed in the body of the report.
[2021-03-02] MEDS ORDERED: ENOXAPARIN 60 MG/0.6 ML SQ ONE (18:22)
[2021-03-02] MEDS ORDERED: ASPIRIN 81 MG CHEWABLE TABLET ONE (18:22)
[2021-03-02 18:43] LABS: Blood Morphology Comment NOT SEEN (NOT SEEN); Platelet Estimate DECR; White Blood Cell Scan OK (OK)
[2021-03-02] MEDS ORDERED: HYDROCODONE/APAP 5/325 MG TAB ONE (18:57)
[2021-03-02 19:22] LABS: Urine Blood Negative (Negative); Urine Glucose Negative (Negative); Urine Protein Negative (Negative); Urine Specific Gravity 1.015 (1.005-1.030)
--- NOTE | 2021-03-02 19:24 | P.HP ---
Certification for Inpatient Patient admitted to: Observation With expected LOS: <2 Midnights Patient will require the following post-hospital care: None Practitioner: I am a practitioner with admitting privileges, knowledge of patient current condition, hospital course, and medical plan of care. Services: Services provided to patient in accordance with Admission requirements found in Title 42 Section 412.3 of the Code of Federal Regulations <Giorgio Dukes - Last Filed: 03/02/21 20:34> Patient History Date of Service: 03/02/21 Primary Care Provider: [facility] Doctor, pulmonology- Dr. Ordoñez Reason for admission: COPD exacerbation History of Present Illness: 55-year-old female history of COPD on chronic home oxygen therapy, CAD presents emergency department for shortness breath, wheezing. Patient evaluated in the emergency department, labs significant for white blood cell count 5.6, h emoglobin 16.79 crit 50 point to chest x-ray demonstrates extensive interstitial opacification likely chronic COPD, CT dissection protocol is that acute findings but does mention mild aortic wall calcifications present with mild infrarenal aortic plaque changing, mild the right common iliac artery narrowing due to atherosclerotic changes. Patient has approximately 40% stenosis of the left external carotid artery at its origin. Patient still wheezing and short of breath after nebulizer treatments, steroids in the emergency department, ED wishes to admit for further evaluation and management of COPD exacerbation. ABG pending. - Past Medical/Surgical History -: COPD on home oxygen -: CAD -: Tubal ligation -: Hysterectomy -: Cholecystectomy -: Carpal tunnel Psychosocial/ Personal History: Patient lives at home with son and - Family History Father -: Heart disease, Cancer Mother -: Diabetes, Cancer Brother -: Diabetes, Stroke, Cancer - Social History Smoking Status: Current every day smoker Counseled patient to stop smoking for: less than 10 minutes Smoking therapy provided: Yes Alcohol use: No CD- Drugs: No Caffeine use: Yes Place of Residence: Home <Giorgio Dukes - Last Filed: 03/02/21 20:34> Date of Service: 03/02/21 <Jett Pollock - Last Filed: 03/03/21 14:25> Review of Systems 10-point ROS is otherwise unremarkable General: Malaise Respiratory: Shortness of Breath Cardiovascular: Chest Pain <Giorgio Dukes - Last Filed: 03/02/21 20:34> Physical Examination - Physical Exam General: Alert, In no apparent distress, Oriented x3 HEENT: Atraumatic, PERRLA, Mucous membr. moist/pink Neck: Supple Respiratory: Normal air movement, Expiratory wheezes Cardiovascular: No edema, Regular rate/rhythm, Normal S1 S2 Capillary refill: <2 Seconds Gastrointestinal: Normal bowel sounds, No tenderness, No rebound, No guarding Musculoskeletal: No tenderness Integumentary: No rashes Neurological: Normal speech, Normal strength at 5/5 x4 extr, Normal tone, Normal affect - Studies Laboratory Data (last 24 hrs) 03/02/21 15:40: PT 12.4, INR 1.08 03/02/21 15:40: WBC 5.60, Hgb 16.7 H, Hct 50.2 H, Plt Count 144 L 03/02/21 15:40: Sodium 142, Potassium 3.7, BUN 4 L, Creatinine 0.60, Glucose 84, Magnesium 2.4, Total Bilirubin 0.5, AST 25, ALT 30, Alkaline Phosphatase 113, Lipase 56 L <Giorgio Dukes - Last Filed: 03/02/21 20:34> - Studies Laboratory Data (last 24 hrs) 03/02/21 15:40: PT 12.4, INR 1.08 03/02/21 15:40: WBC 5.60, Hgb 16.7 H, Hct 50.2 H, Plt Count 144 L 03/02/21 15:40: Sodium 142, Potassium 3.7, BUN 4 L, Creatinine 0.60, Glucose 84, Magnesium 2.4, Total Bilirubin 0.5, AST 25, ALT 30, Alkaline Phosphatase 113, Lipase 56 L <Jett Pollock - Last Filed: 03/03/21 14:25> Assessment and Plan - Plan Assessment Acute on chronic respiratory failure secondary to COPD with exacerbation-on home oxygen Hypertension Anxiety History of CAD Migraines Plan Acute on chronic hypoxic, hypercapnic respiratory failure secondary to COPD with exacerbation-on home oxygen: Continue with IV steroids, scheduled nebs, inhalers. Pulmonology consulted. ABG pending, BiPAP if needed. Anticipate clinical improvement next 24-48 hr. DVT prophylaxis Lovenox 40 mg subcutaneous once daily. Hypertension: Continue home medications Anxiety: Continue home medications History of CAD: Patient reports history of heart catheterization without stent placement, will continue home medications. Patient need to follow up with Cardiology on outpatient basis. Migraines: Continue home medications Discharge Plan: Home Plan to discharge in: 24 Hours - Advance Directives Does patient have a Living Will: No Does patient have a Durable POA for Healthcare: No - Code Status/Comfort Care Code Status Assessed: Yes (Full code) Critical Care: No Time Spent Managing Pts Care (In Minutes): 55 <Giorgio Dukes - Last Filed: 03/02/21 20:34> Date of Service: 03/02/21 Agree with plan of care as mentioned below. Patient is clinically doing well. Patient denies any new complaints. Anticipate discharge later today. <Jett Pollock - Last Filed: 03/03/21 14:25>
[2021-03-02 19:40] LABS: Arterial Blood Carboxyhemoglob 3.2 % (0-1.5); Blood Gas Oxyhemoglobin 85.3 % (94-97); Blood O2 Saturation 88.9 % (92-98.5)
[2021-03-02] MEDS ORDERED: dexAMETHasone 10 MG/ML VIAL ONE (19:50)
[2021-03-02] MEDS ORDERED: ACETAMINOPHEN 500 MG TAB PO PRN (21:42)
[2021-03-02] MEDS ORDERED: ONDANSETRON 4 MG/2 ML VIAL IV PRN (21:42)
[2021-03-02] MEDS ORDERED: ALBUTEROL 2.5 MG/3 ML NEB SOL NEB PRN (21:42)
[2021-03-02] MEDS ORDERED: METHYLPREDNISOLONE 125 MG INJ IV SCH (21:42)
[2021-03-02 22:15] VITALS: BMI 28.6
[2021-03-02] MEDS: IPRATROPIUM BROM 0.5MG/2.5ML NEB PRN (23:15)
[2021-03-02] MEDS: ARFORMOTEROL TARTRATE 15 MCG/2 ML VIAL.NEB NEB SCH (23:15)
[2021-03-02] MEDS ORDERED: MELATONIN 5 MG TABLET PO PRN (23:26)
[2021-03-02] MEDS: METHYLPREDNISOLONE 40 MG INJ IV SCH (23:50)
[2021-03-02] MEDS: FAMOTIDINE 20 MG TAB PO SCH (23:50)
[2021-03-03 00:46] LABS: CKMB Creatine Kinase MB < 1.0 ng/mL (0.3-3.6); Creatine Phosphokinase 25 U/L (26-192); Troponin I < 0.02 ng/mL (0.0-0.045)
[2021-03-03] MEDS: HYDROCODONE/APAP 7.5/325 MG TAB PO PRN ×2 (04:33→10:34)
[2021-03-03 04:49] LABS: Absolute Lymphocytes (CBC) 0.5 K/uL (0.7-4.9); Basophils % 0.4 % (0-1.3); Hematocrit 44.4 % (36.0-45.0); Lymphocytes % 20.2 % (15.3-44.8); MPV 10.8 fL (7.6-11.3)
[2021-03-03 04:54] LABS: Magnesium 2.3 mg/dL (1.8-2.4); Potassium 3.5 mmol/L (3.5-5.1)
[2021-03-03] MEDS ORDERED: ALPRAZOLAM 0.5 MG TABLET PO PRN (05:07)
[2021-03-03] MEDS: ARFORMOTEROL TARTRATE 15 MCG/2 ML VIAL.NEB NEB SCH (07:58)
[2021-03-03 08:12] LABS: CKMB Creatine Kinase MB < 1.0 ng/mL (0.3-3.6); Creatine Phosphokinase 39 U/L (26-192); Troponin I < 0.02 ng/mL (0.0-0.045)
[2021-03-03 08:27] LABS: Blood Morphology Comment NOT SEEN (NOT SEEN); Platelet Estimate ADEQ; White Blood Cell Scan OK (OK)
[2021-03-03] MEDS ORDERED: SERTRALINE HCL 100 MG TAB PO SCH (09:00)
[2021-03-03] MEDS ORDERED: ENOXAPARIN 40 MG/0.4 ML SQ SCH (09:00)
[2021-03-03] MEDS ORDERED: ISOSORBIDE MONO SR 30 MG TAB PO SCH (09:00)
[2021-03-03] MEDS ORDERED: POTASSIUM CL SA 10 MEQ TAB PO ONE (09:00)
[2021-03-03] MEDS ORDERED: ATORVASTATIN 40 MG TAB PO SCH (09:00)
[2021-03-03] MEDS ORDERED: TOPIRAMATE 25 MG TAB PO SCH (09:00)
[2021-03-03] MEDS ORDERED: NICOTINE 21 MG/PAT TD SCH (09:00)
[2021-03-03] MEDS ORDERED: ASPIRIN EC 81 MG TAB PO SCH (09:00)
[2021-03-03] MEDS: FAMOTIDINE 20 MG TAB PO SCH (09:35)
[2021-03-03] MEDS: METHYLPREDNISOLONE 40 MG INJ IV SCH ×2 (09:38→13:07)
--- NOTE | 2021-03-03 14:35 | P.DS ---
Discharge Date: 03/03/21 Primary Care Provider: [place] Doctor, pulmonology- Dr. Ordoñez Reason for Admission: COPD exacerbation Brief History of Present Illness: Patient is a 55-year-old female with a history of advanced COPD who came to the hospital with difficulty breathing and pleuritic chest pain. She had pain whenever she took a deep breath. She was having persistent coughing. She recently switched over to [facility] and apparently her medications were changed. She has been feeling really bad since this time. Currently she is getting nebs, steroids, and antibiotics. Anticipate discharge home once clinically stable. Hospital Course: Patient has done well during hospital stay. Her respiratory status is stable. She is on 3 L of oxygen. She is having a lot of pleuritic chest pain. Will continue managing with pain control along with steroids and breathing treatments. She has been counselled regarding tobacco cessation. She is still smoking. According to the nursing staff she has gone downstairs to smoke during her hospitalization. Her lungs will continue to worsen if she continues to smoke. However, at this time will plan on discharging home with outpatient follow-up. Vital Signs/Physical Exam: Temp Pulse Resp BP Pulse Ox 97.8 F 64 20 115/78 96 03/03/21 12:00 03/03/21 12:00 03/03/21 12:00 03/03/21 12:00 03/03/21 12:00 General: Alert, In no apparent distress, Oriented x3 Laboratory Data at Discharge: WBC 2.70 K/uL (4.3-10.9) L D 03/03/21 04:13 Hgb 14.5 g/dL (12.0-15.0) 03/03/21 04:13 Hct 44.4 % (36.0-45.0) 03/03/21 04:13 Plt Count 114 K/uL (152-406) L D 03/03/21 04:13 PT 12.4 SECONDS (9.5-12.5) 03/02/21 15:40 INR 1.08 03/02/21 15:40 Sodium 139 mmol/L (136-145) 03/03/21 04:13 Potassium 3.5 mmol/L (3.5-5.1) 03/03/21 04:13 BUN 6 mg/dL (7-18) L 03/03/21 04:13 Creatinine 0.74 mg/dL (0.55-1.3) 03/03/21 04:13 Glucose 209 mg/dL (74-106) H 03/03/21 04:13 Magnesium 2.3 mg/dL (1.8-2.4) 03/03/21 04:13 Total Bilirubin 0.5 mg/dL (0.2-1.0) 03/02/21 15:40 AST 25 U/L (15-37) 03/02/21 15:40 ALT 30 U/L (12-78) 03/02/21 15:40 Alkaline Phosphatase 113 U/L (45-117) 03/02/21 15:40 Troponin I < 0.02 ng/mL (0.0-0.045) 03/03/21 07:32 Lipase 56 U/L (73-393) L 03/02/21 15:40 Home Medications: ALPRAZolam [Xanax*] 0.5 mg PO TID PRN 03/02/21 Albuterol Sulfate [Ventolin Hfa] 2 puff IH Q6HP PRN 03/02/21 Aspirin [Aspirin EC] 81 mg PO DAILY 03/02/21 Atorvastatin Calcium 40 mg PO DAILY 03/02/21 Isosorbide Mononitrate [Isosorbide Mononitrate ER] 1 tab PO DAILY 03/02/21 Nitroglycerin [Gonitro] 2 spray SL DIRECTED 03/02/21 Sertraline [Zoloft*] 50 mg PO DAILY 03/02/21 Tiotropium [place] [Spiriva] 18 mcg IH DAILY 03/02/21 Topiramate 25 mg PO BID 03/02/21 Triamcinolone 0.1% Crm [Kenalog 0.1% Cream*] 1 aramis TOP BID 03/02/21 Arformoterol Tartrate [Brovana] 15 mcg NEB BIDRESP #60 vial.neb 03/03/21 Cefdinir [Omnicef] 300 mg PO BID #14 capsule 03/03/21 Hydrocodone 7.5/APAP 325 [[place] 7.5/325 mg*] 1 tab PO Q12HP PRN #30 tab 03/03/21 Melatonin 10 mg PO BEDTIME PRN PRN #20 tablet 03/03/21 predniSONE [Deltasone] 20 mg PO BID #11 tab 03/03/21 New Medications: Arformoterol Tartrate [Brovana] 15 mcg NEB BIDRESP #60 vial.neb Melatonin 10 mg PO BEDTIME PRN PRN #20 tablet PRN Reason: Insomnia Hydrocodone 7.5/APAP 325 [[place] 7.5/325 mg*] 1 tab PO Q12HP PRN #30 tab PRN Reason: Pain Scale 5-7 (Moderate) Cefdinir [Omnicef] 300 mg PO BID #14 capsule predniSONE [Deltasone] 20 mg PO BID #11 tab Physician Discharge Instructions: OK TO DC IV AND DC HOME FOLLOW-UP WITH PRIMARY CARE PROVIDER IN 1-2 WEEKS FOLLOW-UP WITH Pulmonary IN 1-2 WEEKS RETURN TO THE ER IF symptoms worsen CALL or TEXT DR. MONGE AT [phone] IF ANY QUESTIONS REGARDING HOSPITAL STAY. PLEASE CALL THE FLOOR AT [phone] IF ANY MEDICATION OR NURSING QUESTIONS. Diet: AHA Activity: Fall precautions Followup: NONE,NONE [Primary Care Provider] - Time spent managing pt's care (in minutes): 35
[2021-03-03 16:54] VITALS: BP 108/65; TEMP 97.4
[2021-03-03] MEDS: IPRATROPIUM BROM 0.5MG/2.5ML NEB PRN (17:31)
[2021-03-03 18:13] VITALS: O2SAT 97
--- NOTE | 2021-03-05 12:06 | EKG ---
Test Date: 2021-03-02 Test Time: 15:35:36 Mathematics Technician: NELSY MEASUREMENT RESULTS: Intervals: Rate: 89 DC: 120 QRSD: 70 QT: 340 QTc: 413 [place]: P: 58 DC: 120 QRS: 77 T: 57 INTERPRETIVE STATEMENTS: Normal sinus rhythm Normal ECG No previous ECG available for comparison Electronically Signed On 03-05-21 11:55:07 CDT by Ramin Hobbs
== END 2021-03-03 18:40 | disposition home or self-care (01) ==
LOC: ER 13:26 → ERHOLD 17:42 → 2ND 20:49
PROVIDERS: ADMIT Family Medicine; ATTEND Hospitalist
DX: J44.1 Chronic obstructive pulmonary disease with (acute) exacerbation (principal); Z99.81 Dependence on supplemental oxygen; I25.10 Atherosclerotic heart disease of native coronary artery without angina pectoris; F17.210 Nicotine dependence, cigarettes, uncomplicated; J96.20 Acute and chronic respiratory failure, unspecified whether with hypoxia or hypercapnia; I10 Essential (primary) hypertension; Z20.822 Contact with and (suspected) exposure to COVID-19; F41.9 Anxiety disorder, unspecified
CPT/HCPCS: 96361; 93005; 87040 ×2; 85025 ×2; 80048 ×2; 36415; 83735 ×2; 82550 ×2; 87205; 85610; 80076; 81003; 84484 ×3; 82553 ×2; 83690; 83880; 0240U; 71275; 74175; 71045; 94640; 82805; 94760; 94660; 96375; 96372; 96374; 99285; Q9967; J0456; J1650 ×2; J1100; J2270 ×2; J7605 ×2; J0696; J7050; J7040; J7030; J2930; J2405 ×2; J2920 ×3